=== PATIENT | female | born 2005 | race Two or more races ===

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

== ENCOUNTER → 2023-11-19 | Outpatient (CLI) | payer OTHER ==
[2023-11-20 10:07] LABS: Mumps IgG Antibody 17.3 AU/mL (Immune >10.9); Varicella Zoster IgG Antibody <135 index (Immune >165)
[2023-11-21 04:06] LABS: Rubeola IgG Antibody >300.0 AU/mL (Immune >16.4)
== END | disposition home or self-care (01) ==
LOC: LAB 13:12
PROVIDERS: ATTEND Anesthesiology
DX: Z01.84 Encounter for antibody response examination (principal)
CPT/HCPCS: 86735; 86762; 86765; 86787